=== PATIENT | male | born 1980 | race Caucasian/White ===

== ENCOUNTER 2021-07-30 08:41 | Emergency (ER) | payer OTHER ==
[~2021-07-30] VITALS: Ht 153 cm; Wt 59.1 kg
[2021-07-30] MEDS ORDERED: bacitracin 15gm ointment TP ONE (08:50)
[2021-07-30] MEDS ORDERED: LIDOcaine 1% W/epiNEPHrine 1:200,000 10ml vial IJ ONE (08:50)
[2021-07-30 09:00] VITALS: BP 121/83
[2021-07-30] MEDS ORDERED: ceFAZolin 1gm IM kit IM ONE (09:30)
[2021-07-30] MEDS ORDERED: TETanus/Pertussis (Acell)/Diphther VAC/PF (Tdap-Adult) 0.5ml syringe IMVAC ONE ×2 (09:50→11:45)
[2021-07-30] MEDS ORDERED: HYDR-3965 PO (11:29)
[2021-07-30] MEDS ORDERED: CEPH250T PO (11:29)
[2021-07-30] MEDS ORDERED: ONDA4TAB6 PO (11:29)
== END 2021-07-30 11:59 | disposition home or self-care (01) ==
LOC: ER 08:42
DX: S61.212A Laceration without foreign body of right middle finger without damage to nail, initial encounter (principal); S61.214A Laceration without foreign body of right ring finger without damage to nail, initial encounter; Z72.89 Other problems related to lifestyle; Z79.2 Long term (current) use of antibiotics; Z79.899 Other long term (current) drug therapy; Z20.3 Contact with and (suspected) exposure to rabies; X58.XXXA Exposure to other specified factors, initial encounter; Y93.89 Activity, other specified; Y92.89 Other specified places as the place of occurrence of the external cause; Y99.8 Other external cause status
CPT/HCPCS: 13121; 73130; 90471; 90715; 96372; 99285; J0690; 99284